=== PATIENT | male | born 1950 | race Caucasian/White ===

== ENCOUNTER 2020-10-23 16:53 | Emergency (ER) | payer MEDICARE, OTHER ==
[~2020-10-23] VITALS: Ht 182.9 cm; Wt 61.2 kg
[2020-10-23] MEDS ORDERED: TRAM100T39 PO (17:05)
[2020-10-23] MEDS ORDERED: PRED1TAB PO (17:05)
[2020-10-23] MEDS ORDERED: IV NORMAL SALINE 1000 ML BAG IV ONE ×2 (17:15→17:30)
[2020-10-23 17:25] LABS: HEMATOCRIT 38.4 % (36.7-47.1); MEAN CORPUSCULAR HEMOGLOBIN 33.8 uug (23.8-33.4); MEAN CORPUSCULAR VOLUME 100.2 fL (73.0-96.2); PLATELET COUNT (AUTO) 217 K/uL (152-348)
[2020-10-23 17:38] LABS: ALANINE AMINOTRANSFERASE 14 U/L (16-63); ALKALINE PHOSPHATASE 85 U/L (50-136); ASPARTATE AMINOTRANSFERASE 15 U/L (15-37); BILIRUBIN,DIRECT < 0.1 mg/dL (0.0-0.2); BILIRUBIN,TOTAL 0.1 mg/dL (0.2-1.0); CARBON DIOXIDE 27 mmol/L (21-32); CHLORIDE 106 mmol/L (98-107); CREATININE 0.9 mg/dL (0.6-1.3); GLUCOSE 142 mg/dL (74-106); POTASSIUM 2.9 mmol/L (3.5-5.1); TOTAL PROTEIN, SERUM 6.5 g/dL (6.4-8.2); UREA NITROGEN, BLOOD 16 mg/dL (7-18)
[2020-10-23] MEDS ORDERED: ONDANSETRON 4 MG/2 ML VIAL ONE (17:42)
[2020-10-23] MEDS ORDERED: ONDANSETRON 4 MG/2 ML VIAL IV ONE (17:45)
[2020-10-23] MEDS ORDERED: POTASSIUM BICARBONATE/CIT AC 25 MEQ TABLET.EFF PO ONE (18:15)
[2020-10-23] MEDS ORDERED: POTASSIUM CHLORIDE 50 ML IV SCH (18:15)
[2020-10-23] MEDS ORDERED: POTASSIUM BICARBONATE/CIT AC 25 MEQ TABLET.EFF ONE (18:51)
[2020-10-23] MEDS ORDERED: POTASSIUM CHLORIDE 50 ML ONE (18:51)
--- NOTE | 2020-10-23 19:10 | NUR ---
Received report from [facility]. Pt noted to be stable. VSS.
--- NOTE | 2020-10-23 20:54 | NUR ---
Patient does not wish to proceed with medical care recommended by Dr. Trevino. Patient given information related to possible complications, up to and including , which could occur as a result of leaving the hospital at this time. Patient verbalizes understanding of risks involved due to leaving against medical advice. Patient has signed AMA form. Steady gait. Denies n/v/d. No c/o pain/discomfort. A/O x4. Picked up by family.
[2020-10-23 21:16] VITALS: BP 139/86
== END 2020-10-23 21:05 | disposition left against medical advice (07) ==
LOC: ER 16:55
DX: R55 Syncope and collapse (principal); E87.6 Hypokalemia; R91.8 Other nonspecific abnormal finding of lung field; Z20.822 Contact with and (suspected) exposure to COVID-19; N40.0 Benign prostatic hyperplasia without lower urinary tract symptoms; M06.9 Rheumatoid arthritis, unspecified; G89.29 Other chronic pain; M54.9 Dorsalgia, unspecified; Z79.899 Other long term (current) drug therapy; R94.31 Abnormal electrocardiogram [ECG] [EKG]
CPT/HCPCS: 36415; 71045; 80048; 80076; 82550; 83735; 83880; 84484; 85025; 87426; 93005; 96361; 96374; 96375; 99285; J2405; J3480; 70030-TC; A4663; J7050